=== PATIENT | male | born 1970 | race Hispanic/Latino ===

== ENCOUNTER → 2024-06-11 | Outpatient (CLI) | payer OTHER ==
--- NOTE | 2024-06-11 10:48 | HMCIMG ---
ULTRASOUND SOFT TISSUE CHEST INDICATION: Mid abdominal/chest wall swelling COMPARISON: None TECHNIQUE: Multiplanar sonographic images of the midline midabdomen/chest were obtained earlier in real-time using grayscale and color Doppler technique, and subsequently made available for review. FINDINGS/IMPRESSION: No evidence for soft tissue mass or free or organized fluid collection at area of interest along the mid abdomen/chest.
== END | disposition home or self-care (01) ==
LOC: RAH 09:27 → EEVIPCON 10:00
PROVIDERS: ATTEND Family Medicine
DX: R22.2 Localized swelling, mass and lump, trunk (principal)
CPT/HCPCS: 76604